=== PATIENT | female | born 1955 | race African-American/Black ===

== ENCOUNTER 2019-02-08 14:14 | Emergency (ER) | payer BC, MEDICAID ==
[~2019-02-08] VITALS: Ht 152.4 cm; Wt 55.0 kg
[~2019-02-08 14:14] MED LIST: IBUP-2030 PO
[2019-02-08] MEDS ORDERED: LISINOPRIL 10MG TABLET PO ONE (18:15)
[2019-02-08] MEDS ORDERED: TRAMADOL 50MG TABLET PO ONE (18:15)
[2019-02-08] MEDS ORDERED: ONDANSETRON 4MG ODT PO ONE (18:15)
[2019-02-08] MEDS ORDERED: ACETAMINOPHEN WITH CODEINE 120-12MG/5ML UDC PO ONE (20:30)
[2019-02-08] MEDS ORDERED: HYDROCODONE/ACETAMINOPHEN 5/325MG TABLET PO ONE ×2 (20:45→23:00)
[2019-02-08 23:15] VITALS: BP 129/80
== END 2019-02-08 23:25 | disposition home or self-care (01) ==
LOC: ER 14:14
DX: S42.494A Other nondisplaced fracture of lower end of right humerus, initial encounter for closed fracture (principal); S32.039A Unspecified fracture of third lumbar vertebra, initial encounter for closed fracture; W01.0XXA Fall on same level from slipping, tripping and stumbling without subsequent striking against object, initial encounter; Y93.89 Activity, other specified; Y92.012 Bathroom of single-family (private) house as the place of occurrence of the external cause; I10 Essential (primary) hypertension; I69.398 Other sequelae of cerebral infarction
CPT/HCPCS: 29105; 72100; 72170; 73030; 73080; 73090; 99284; Q0162; A4565

== ENCOUNTER 2019-02-10 19:08 | Emergency (ER) | payer MEDICAID ==
[~2019-02-10] VITALS: Ht 149.9 cm; Wt 45.0 kg
[2019-02-10 21:55] VITALS: BP 127/78
== END 2019-02-10 21:29 | disposition home or self-care (01) ==
LOC: ER 19:08
DX: S42.402A Unspecified fracture of lower end of left humerus, initial encounter for closed fracture (principal); I10 Essential (primary) hypertension; Z86.73 Personal history of transient ischemic attack (TIA), and cerebral infarction without residual deficits; Z98.890 Other specified postprocedural states; W18.39XA Other fall on same level, initial encounter; Y93.89 Activity, other specified; Y92.89 Other specified places as the place of occurrence of the external cause; Y99.8 Other external cause status
CPT/HCPCS: 99281